=== PATIENT | female | born 1965 | race Caucasian/White ===

== ENCOUNTER 2017-08-13 13:56 | Emergency (ER) | payer SELFPAY ==
[~2017-08-13] VITALS: Ht 172.7 cm; Wt 82.0 kg
[2017-08-13 14:01] VITALS: BP 141/103; PULSE 75; RESP 20; TEMP 98.4; O2SAT 97
[2017-08-13] MEDS ORDERED: SILV1CRE20 TOPICAL (15:09)
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
[2017-08-13] MEDS ORDERED: IBUPROFEN 800 MG TAB PO ONE (15:15)
== END 2017-08-13 15:19 | disposition home or self-care (01) ==
LOC: NEPD 13:56
DX: T21.11XA Burn of first degree of chest wall, initial encounter (principal); T20.17XA Burn of first degree of neck, initial encounter; T20.13XA Burn of first degree of chin, initial encounter; T23.102A Burn of first degree of left hand, unspecified site, initial encounter; T23.101A Burn of first degree of right hand, unspecified site, initial encounter; T22.112A Burn of first degree of left forearm, initial encounter; T22.111A Burn of first degree of right forearm, initial encounter; X19.XXXA Contact with other heat and hot substances, initial encounter
CPT/HCPCS: 99283